=== PATIENT | male | born 1945 | race Caucasian/White ===

== ENCOUNTER 2022-05-10 08:34 | Day surgery (SDC) | payer OTHER ==
[2022-05-10 09:45] LABS: Absolute Lymphocytes (CBC) 1.6 K/uL (0.7-4.9); Hematocrit 49.2 % (39.6-49.0); Lymphocytes % 14.8 % (15.3-44.8); MCV 93.4 fL (80-100); MPV 7.8 fL (7.6-11.3); RBC Red Blood Cell Count 5.27 M/uL (4.33-5.43)
[2022-05-10] MEDS ORDERED: Ringers Lactate 1,000 ML IV ONE ×2 (09:45→12:20)
[2022-05-10 10:00] LABS: Potassium 3.8 mmol/L (3.5-5.1)
[2022-05-10] MEDS ORDERED: propofoL 200 MG/20 ML VIAL IV ONE ×2 (10:37→11:03)
[2022-05-10] MEDS ORDERED: LIDOCAINE 2% MPF 5 ML VIAL ONE ×2 (10:38→11:03)
[2022-05-10] MEDS ORDERED: ROCURONIUM 50 MG/5 ML VIAL IV ONE ×2 (10:38→11:18)
[2022-05-10] MEDS ORDERED: FENTANYL CITR 100 MCG/2 ML ONE ×2 (10:38→11:03)
[2022-05-10] MEDS ORDERED: ACETAMINOPHEN 500 MG TAB ONE (10:41)
[2022-05-10] MEDS ORDERED: CELECOXIB 100 MG CAPSULE ONE (10:42)
[2022-05-10] MEDS: CEFOXITIN SODIUM 2 GM/VIAL ONE ×3 (10:45→11:08)
[2022-05-10] MEDS: BUPIVACAINE 0.25% PF 10 ML VIAL ONE ×3 (10:45→11:33)
[2022-05-10] MEDS ORDERED: FENTANYL 75 MCG/PATCH TD ONE (11:00)
[2022-05-10] MEDS ORDERED: MIDAZOLAM HCL 2 MG/2 ML INJ ONE (11:03)
[2022-05-10] MEDS ORDERED: ONDANSETRON 4 MG/2 ML VIAL ONE (11:03)
[2022-05-10] MEDS ORDERED: KETOROLAC 30 MG/ML INJ ONE (11:03)
[2022-05-10] MEDS ORDERED: dexAMETHasone 10 MG/ML VIAL ONE (11:03)
[2022-05-10] MEDS ORDERED: VECURONIUM 10 MG/VIAL IV ONE (11:26)
[2022-05-10] MEDS ORDERED: NS 0.9% VIAL 10 ML ONE ×3 (11:26→11:37)
--- NOTE | 2022-05-10 12:16 | P.OP ---
Preoperative diagnosis: Chronic Cholecystitis Postoperative diagnosis: Chronic Cholecystitis Primary procedure: Laparoscopic cholecystectomy with ICG Cholangiography Anesthesia: GETA + Local Estimated blood loss: <5cc Specimen: gallbladder Findings: Distended Gallbladder Complications: None Transferred to: Recovery Room Condition: Good
[2022-05-10] MEDS ORDERED: NEOSTIGMINE 1 MG/ML -10 ML VIAL ONE (12:17)
[2022-05-10] MEDS ORDERED: GLYCOPYRROLATE 0.2 MG/ML SYR ONE (12:17)
[2022-05-10] MEDS: HYDROMORPHONE HCL 2 MG/ML inj ONE ×4 (12:43→13:25)
[2022-05-10] MEDS ORDERED: VERAPAMIL HCL 10 MG/4 ML VIAL IV ONE (13:15)
--- NOTE | 2022-05-10 13:15 | EKG ---
Test Date: 2022-05-10 Test Time: 09:21:35 Soft Tile Setter: LASHONDA MEASUREMENT RESULTS: Intervals: Rate: 97 MI: 172 QRSD: 96 QT: 336 QTc: 426 Lititz: P: MI: 172 QRS: -45 T: -3 INTERPRETIVE STATEMENTS: Sinus rhythm with occasional premature ventricular complexes Left anterior fascicular block Cannot rule out Anterior infarct, age undetermined Abnormal ECG No previous ECG available for comparison Electronically Signed On 05-10-22 13:13:59 [employer]AME [employer]ER by Ej Tsai
--- NOTE | 2022-05-10 13:16 | OP ---
Date of Procedure: 05/10/2022 Surgeon: Tom Grant MD, Preoperative Diagnosis: Chronic cholecystitis. Postoperative Diagnosis: Chronic cholecystitis. Procedure Performed: Laparoscopic cholecystectomy with ICG cholangiography that is indocyanine green cholangiography. Anesthesia: General endotracheal plus local with 0.25% Marcaine. Estimated Blood Loss: Less than 5 cc. Specimen: Gallbladder. Findings: Distended gallbladder. Complications: None. Disposition: The patient was transferred to the recovery room in good condition. Procedure In Detail: After informed consent was obtained, the patient was brought to the operating r oom, prepped and draped in the usual sterile fashion after adequate anesthesia was achieved. I anest hetized an area to the right of the umbilicus with 0.25% Marcaine as the patient had a previous midli ne laparotomy incision. I incised down through subcutaneous tissues and placed a 5 mm 0-degree optic al trocar into the abdomen without evidence of complication. Insufflation was obtained to 15 mmHg at this time. There was no injury to vital structures upon entry into the abdomen. Two additional tro cars were placed, 1 in the epigastrium and 1 in the right upper quadrant. Both of these were similar ly anesthetized, sharply incised. A 5 mm trocar was placed under direct visualization without eviden ce of complication. I then upsized the periumbilical trocar to a 12 mm under direct visualization wi thout evidence of complication. The patient was positioned head up right-side up position. Ratchete d grasper was used to grasp the patient's gallbladder and was found to be quite distended. I dissect ed down to the Shamir pouch of the gallbladder, dissected out 2 structures, identified both the cys tic duct and cystic artery. These were encircled with a [place] retractor. ICG cholangiography con firmed the position of the cystic duct and common duct junction and a critical view of safety was obt ained at this point as well and ICG confirmed the anatomy as described above. I then placed double t itanium clips on the proximal side and singly on the distal side of both cystic duct and cystic arter y. These structures were then ligated using Endo Abhijit and the gallbladder was removed from the hep atic fossa without evidence of complication at the umbilical trocar site. The abdomen was re-insuffl ated. The area was copiously irrigated. No hemostatic maneuvers were required. Clips were found to be in good anatomic position. The patient was positioned back in a neutral position. The remaining effluent was suctioned out. I confirmed with ICG cholangiography that there was no additional leaka ge of bile at the end of the procedure. I then suctioned out of the remaining effluent and I closed the periumbilical trocar site using a Jose Enrique-Giana suture passer with 0 Vicryl in interrupted fash ion with good approximation of tissues. The abdomen was completely desufflated under direct visualiz ation without evidence of complication. All incisions were then copiously irrigated and closed with a 4-0 Monocryl in a running fashion. Dermabond placed over top. The patient tolerated the procedure well without evidence of complication and transferred to PACU in good condition. All counts were co rrect at the end of the case. TREV/RIDGE Voice ID: [id number] Report ID: [id number]
[2022-05-10 14:57] VITALS: BP 134/58; TEMP 98.9; O2SAT 97
== END 2022-05-10 14:53 | disposition home or self-care (01) ==
LOC: OR 08:34
PROVIDERS: ATTEND Surgery
PROC: BF13YZZ Fluoroscopy of Gallbladder and Bile Ducts using Other Contrast (ICD-10-PCS; 2022-05-10)
PROC: 0FT44ZZ Resection of Gallbladder, Percutaneous Endoscopic Approach (ICD-10-PCS; principal; 2022-05-10 11:00)
DX: K80.10 Calculus of gallbladder with chronic cholecystitis without obstruction (principal); K21.9 Gastro-esophageal reflux disease without esophagitis
CPT/HCPCS: 36415; 80048; 85025; 88304; 93005; A4216; J0694; J1100; J1170; J2001; J2250; J2405; J2704; J2710; J3010; J7120